=== PATIENT | female | born 1990 | race African-American/Black ===

== ENCOUNTER 2019-07-13 16:00 | Emergency (ER) | payer SELFPAY ==
[~2019-07-13] VITALS: Ht 157.5 cm; Wt 140.6 kg
[2019-07-13 16:33] VITALS: BP 139/72
[2019-07-13] MEDS ORDERED: ALBUTEROL SULFATE 2.5 MG/3 ML NEBU. NEB ONE (17:00)
[2019-07-13] MEDS ORDERED: ALBU2.5V8 INH (18:02)
--- NOTE | 2019-07-13 18:03 | PHYS DOC ---
Past Medical History Past Medical History: Asthma Past Surgical History: Alcohol Use: Occasionally Drug Use: None Adult General Chief Complaint Chief Complaint: COUGH HPI HPI Patient is a 28 year old AA female, who presents to the emergency department with complaints of a dry cough, chest tenderness with coughing, wheezing, nasal congestion, sore throat, and bilateral ear fullness since yesterday. Patient states she has a history of asthma and is out of her asthma medications. SHe currently rates her pain a 5 out of 10 on the pain scale, she denies any alleviating factors, states that coughing exacerbates her pain. Review of Systems Review of Systems Constitutional: Denies fever or chills [] Eyes: Denies change in visual acuity, redness, or eye pain [] HENT: Reports nasal congestion, runny nose, bilateral ear fullness, and sore throat since yesterday Respiratory: See history of present illness Cardiovascular: No additional information not addressed in HPI [] GI: Denies abdominal pain, nausea, vomiting, or diarrhea [] Musculoskeletal: Denies back pain Integument: Denies rash or skin lesions [] Neurologic: Denies headache Complete systems were reviewed and found to be within normal limits, except as documented in this note. Current Medications Current Medications Current Medications Medications (Trade) Dose Ordered Sig/Marli Start Time Stop Time Status Last Admin Dose Admin Albuterol Sulfate (Ventolin Neb Soln) 2.5 mg 1X ONCE 07/13/19 17:00 07/13/19 17:01 DC 07/13/19 17:20 2.5 MG Allergies Allergies Allergies Coded Allergies Type Severity Reaction Last Updated Verified Penicillins Allergy Intermediate Rash 07/13/19 Yes Physical Exam Physical Exam Constitutional: Well developed, well nourished, no acute distress, non-toxic appearance, obese. [] HENT: Normocephalic, atraumatic, bilateral external ears normal, oropharynx moist, cobblestone appearance of posterior pharynx without erythema, no oral exudates, nasal turbinates edematous and erythematous bilaterally Eyes: PERRLA, EOMI, conjunctiva normal, no discharge. [] Neck: Normal range of motion, no tenderness, supple, no stridor. [] Cardiovascular:Heart rate regular rhythm, no murmur [] Lungs & Thorax: Bilateral breath sounds clear to auscultation in upper lobes, diminished bilaterally and posterior lobes [] Skin: Warm, dry, no erythema, no rash. [] Back: No tenderness, no CVA tenderness. [] Extremities: No cyanosis, no clubbing, ROM intact, no edema. [] Neurologic: Alert and oriented X 3, no focal deficits noted. [] Psychologic: Affect normal, judgement normal, mood normal. [] Current Patient Data Vital Signs Vital Signs Date Time Temp Pulse Resp B/P (MAP) Pulse Ox O2 Delivery O2 Flow Rate FiO2 07/13/19 17:21 98 Room Air 07/13/19 16:33 98.9 78 12 139/72 (94) 98.9 EKG EKG [] Radiology/Procedures Radiology/Procedures Patient was given a breathing treatment in the emergency department, following the breathing treatment lungs were clear throughout all beyer with increased movement in the lower lobes bilaterally. Patient reported feeling better.[] Course & Med Decision Making Course & Med Decision Making Pertinent Labs and Imaging studies reviewed. (See chart for details) [] Dragon Disclaimer Dragon Disclaimer This electronic medical record was generated, in whole or in part, using a voice recognition dictation system. Departure Departure Impression: Primary Impression: URI (upper respiratory infection) Additional Impression: Allergic rhinitis Disposition: 01 HOME, SELF-CARE Condition: STABLE Referrals: NO PCP (PCP) Patient Instructions: Allergic Rhinitis, Upper Respiratory Infection, Adult, [id number]-[id number] Additional Instructions: Fill the prescription(s) and use as directed. Recommend that you take 10 mg of generic Zyrtec (cetirizine) or Claritin at bedtime and use over the counter Flonase (fluticasone) nasal spray 2 sprays each nostril once daily in the morning. You may take Tylenol or ibuprofen as needed for pain/fever. Increase clear fluids. Avoid triggers such as smoke, fragrance, dust, and pollen. You may take OTC cough suppressants as needed. Follow-up with your primary care doctor if symptoms persist, return to the ER if symptoms worsen. Scripts Albuterol Sulfate (Proair Hfa) 8.5 Gm Hfa.aer.ad 2 PUFF INH PRN Q6HRS PRN for SHORTNESS OF BREATH for 30 Days, #1 INHALER 1 Refill Prov: ANSELMO SEGUNDO TILE PICKER 07/13/19 Problem Qualifiers Primary Impression: URI (upper respiratory infection) URI type: unspecified URI Qualified Codes: J06.9 - Acute upper respiratory infection, unspecified Additional Impression: Allergic rhinitis Allergic rhinitis trigger: unspecified Allergic rhinitis seasonality: unspecified Qualified Codes: J30.9 - Allergic rhinitis, unspecified ANSELMO SEGUNDO TILE PICKER Jul 13, 2019 18:03
== END 2019-07-13 18:05 | disposition home or self-care (01) ==
LOC: ER 16:00
DX: J45.909 Unspecified asthma, uncomplicated (principal); J06.9 Acute upper respiratory infection, unspecified; Z98.890 Other specified postprocedural states; Z88.0 Allergy status to penicillin
CPT/HCPCS: 94640; 99283; J7613

== ENCOUNTER 2019-10-20 10:08 | Emergency (ER) | payer SELFPAY ==
[~2019-10-20] VITALS: Ht 157.5 cm; Wt 136.1 kg
[~2019-10-20 10:08] MED LIST: ALBU2.5V8 INH
[2019-10-20] MEDS ORDERED: IV NORMAL SALINE 1000ML BAG 1,000 ML IV SCH (11:24)
[2019-10-20] MEDS ORDERED: ONDANSETRON PF 4 MG/2 ML VIAL. IV ONE (11:30)
--- NOTE | 2019-10-20 11:35 | PHYS DOC ---
Past Medical History Past Medical History: Asthma, Other Additional Past Medical Histor: UTERINE FIBROIDS Past Surgical History: Alcohol Use: Rarely Drug Use: None Adult General Chief Complaint Chief Complaint: NAUSEA/VOMITING/DIARRHA HPI HPI Patient is a 29 year old female patient with history of asthma who presents with complaining of abdominal pain. Patient complaining of gradual onset of periumbilical abdominal pain the last 3 days as a constant pain associated with 4 episodes of vomiting since yesterday and feeling of constipation. Patient rated her pain 8/10 and complaining of urinary frequency and dysuria and one episode of fever of 102 couple days ago. Patient states the pain radiated to left flank and getting force with movement. Patient complaining of anorexia without having sick contact and history of the same problem. Patient states she had late menstruation for 23 days and had 1 day of vaginal bleeding on October 05 without using any contraception. Patient states she took oidb-tro-hfqayve Tylenol and ibuprofen without improvement of her pain. Review of Systems Review of Systems Constitutional: Denies fever or chills [] Eyes: Denies change in visual acuity, redness, or eye pain [] HENT: Denies nasal congestion or sore throat [] Respiratory: Denies cough or shortness of breath [] Cardiovascular: No additional information not addressed in HPI [] GI: Reports abdominal pain, nausea, vomiting, constipation, denies bloody stools or diarrhea [] : Denies hematuria, reports dysuria and urinary frequency[] Musculoskeletal: Denies back pain or joint pain [] Integument: Denies rash or skin lesions [] Neurologic: Denies headache, focal weakness or sensory changes [] Endocrine: Denies polyuria or polydipsia [] All other systems were reviewed and found to be within normal limits, except as documented in this note. Current Medications Current Medications Current Medications Medications (Trade) Dose Ordered Sig/Marli Start Time Stop Time Status Last Admin Dose Admin Ketorolac Tromethamine (Toradol 30mg Vial) 30 mg 1X ONCE 10/20/19 12:30 10/20/19 12:31 DC Ondansetron HCl (Zofran) 4 mg 1X ONCE 10/20/19 11:30 10/20/19 11:31 DC 10/20/19 12:03 4 MG Sodium Chloride 1,000 ml @ 1,000 mls/hr Q1H 10/20/19 11:24 10/20/19 12:23 DC 10/20/19 12:03 1,000 MLS/HR Allergies Allergies Allergies Coded Allergies Type Severity Reaction Last Updated Verified Penicillins Allergy Intermediate Rash 07/13/19 Yes Physical Exam Physical Exam Constitutional: Well developed, well nourished, mild distress, non-toxic appearance, morbidly obese. [] HENT: Normocephalic, atraumatic. Eyes: PERRLA, EOMI, conjunctiva normal, no discharge. [] Neck: Normal range of motion, no tenderness, supple, no stridor. [] Cardiovascular:Heart rate regular rhythm, no murmur [] Lungs & Thorax: Bilateral breath sounds clear to auscultation [] Abdomen: Bowel sounds normal, soft, right lower quadrant guarding , no tenderness, no masses, no pulsatile masses. [] Skin: Warm, dry, no erythema, no rash. [] Back: No tenderness, no CVA tenderness. [] Extremities: No tenderness, no cyanosis, no clubbing, ROM intact, no edema. [] Neurologic: Alert and oriented X 3, no focal deficits noted. [] Psychologic: Affect normal, judgement normal, mood normal. [] Current Patient Data Vital Signs Vital Signs Date Time Temp Pulse Resp B/P (MAP) Pulse Ox O2 Delivery O2 Flow Rate FiO2 10/20/19 11:23 98.6 72 16 124/65 (84) 99 Room Air 98.6 Lab Values Laboratory Tests Test 10/20/19 11:00 10/20/19 11:15 Urine Collection Type Unknown Urine Color Yellow Urine Clarity Clear Urine pH 7.5 Urine Specific [place] 1.015 Urine Protein Negative mg/dL (NEG-TRACE) Urine Glucose (UA) Negative mg/dL (NEG) Urine Ketones (Stick) Negative mg/dL (NEG) Urine Blood Negative (NEG) Urine Nitrite Negative (NEG) Urine Bilirubin Negative (NEG) Urine Urobilinogen Dipstick 1.0 mg/dL (0.2 mg/dL) Urine Leukocyte Esterase Negative (NEG) Urine RBC 0 /HPF (0-2) Urine WBC 0 /HPF (0-4) Urine Squamous Epithelial Cells Few /LPF Urine Bacteria 0 /HPF (0-FEW) Urine Test Negative (NEG) White Blood Count 5.7 x10^3/uL (4.0-11.0) Red Blood Count 4.65 x10^6/uL (3.50-5.40) Hemoglobin 12.6 g/dL (12.0-15.5) Hematocrit 38.5 % (36.0-47.0) Mean Corpuscular Volume 83 fL (79-100) Mean Corpuscular Hemoglobin 27 pg (25-35) Mean Corpuscular Hemoglobin Concent 33 g/dL (31-37) Red Cell Distribution Width 18.6 % (11.5-14.5) H Platelet Count 342 x10^3/uL (140-400) Neutrophils (%) (Auto) 45 % (31-73) Lymphocytes (%) (Auto) 44 % (24-48) Monocytes (%) (Auto) 9 % (0-9) Eosinophils (%) (Auto) 2 % (0-3) Basophils (%) (Auto) 1 % (0-3) Neutrophils # (Auto) 2.6 x10^3/uL (1.8-7.7) Lymphocytes # (Auto) 2.5 x10^3/uL (1.0-4.8) Monocytes # (Auto) 0.5 x10^3/uL (0.0-1.1) Eosinophils # (Auto) 0.1 x10^3/uL (0.0-0.7) Basophils # (Auto) 0.1 x10^3/uL (0.0-0.2) Sodium Level 140 mmol/L (136-145) Potassium Level 4.0 mmol/L (3.5-5.1) Chloride Level 105 mmol/L (98-107) Carbon Dioxide Level 24 mmol/L (21-32) Anion Gap 11 (6-14) Blood Urea Nitrogen 11 mg/dL (7-20) Creatinine 0.7 mg/dL (0.6-1.0) Estimated GFR (Cockcroft-Gault) 118.1 BUN/Creatinine Ratio 16 (6-20) Glucose Level 101 mg/dL (70-99) H Calcium Level 9.0 mg/dL (8.5-10.1) Total Bilirubin 0.3 mg/dL (0.2-1.0) Aspartate Amino Transferase (AST) 13 U/L (15-37) L Alanine Aminotransferase (ALT) 14 U/L (14-59) Alkaline Phosphatase 68 U/L (46-116) Total Protein 7.6 g/dL (6.4-8.2) Albumin 3.1 g/dL (3.4-5.0) L Albumin/Globulin Ratio 0.7 (1.0-1.7) L Lipase 29 U/L (73-393) L Laboratory Tests 10/20/19 11:15 Laboratory Tests 10/20/19 11:15 EKG EKG [] Radiology/Procedures Radiology/Procedures [][facility] [address] [place] [address] IMAGING REPORT Signed PATIENT: ALINE ERWIN ACCOUNT: [id number] : 1990 LOCATION: ER AGE: 29 SEX: F EXAM STATUS: REG ER ORD. PHYSICIAN: MARIE GELLER MD REASON: LEFT flank and abdominal pain PROCEDURE: CT ABDOMEN PELVIS WO CONTRAST EXAM: Abdomen and pelvis CT without intravenous contrast. HISTORY: Left flank and abdominal pain. TECHNIQUE: Computed tomographic images of the abdomen and pelvis were obtained without contrast. Multiplanar reformatting was performed. *One or more of the following individualized dose reduction techniques were utilized for this examination: 1. Automated exposure control. 2. Adjustment of the mA and/or kV according to patient size. 3. Use of iterative reconstruction technique. COMPARISON: None. FINDINGS: Evaluation of the lower thorax demonstrates no infiltrate or pleural effusion. There is mild air trapping. There is posterior dependent and basilar atelectasis. The heart is normal in size. There is a 2.0 cm partially peripherally calcified lesion adjacent to the gallbladder. This may be calcification of the wall of a phrygian cap or a stone within a phrygian cap. This may also be a peripheral calcified cystic lesion within the adjacent liver parenchyma. This is difficult to assess in the absence of contrast. The pancreas is unremarkable. There are small splenules. There is a splenic granuloma. The adrenal glands are unremarkable. There is no convincing hydronephrosis or nephrolithiasis. There is no appendicitis. There is no bowel obstruction. The uterus, ovaries and urinary bladder are unremarkable. The aorta is normal in caliber. There is no lymphadenopathy. There is no suspicious osseous lesion. IMPRESSION: 1. No convincing acute abdominal or pelvic finding. 2. 2.0 cm partially partially calcified lesion adjacent to the gallbladder. This may be a phrygian cap wall calcification, a phrygian cap stone or adjacent cystic lesion involving the liver. This can be better characterized with a sonogram or contrast-enhanced exam. Electronically signed by: Michelle Gregory MD (10/20/2019 12:43 PM) [place] [id number] DICTATED and SIGNED BY: MICHELLE GREGORY MD DATE: 10/20/19 6381 Course & Med Decision Making Course & Med Decision Making Pertinent Labs and Imaging studies reviewed. (See chart for details) Evaluation of patient in ER showed 29-year-old female patient with morbid obesity and complaining of lower abdominal pain for 3 days. Patient had unremarkable CBC, CMP, UA with normal liver function tests. Patient had questionable calcification in right upper quadrant. Patient did not have right upper quadrant tenderness or complaining of pain. Patient was advised to follow- up with her primary care physician regarding gallbladder evaluation. Patient felt better with treatment in ER. Plan discharge patient home with diagnosis of abdominal pain. Dragon Disclaimer Dragon Disclaimer This electronic medical record was generated, in whole or in part, using a voice recognition dictation system. Departure Departure Impression: Primary Impression: Lower abdominal pain Additional Impressions: Flank pain Nausea and vomiting Morbid obesity Disposition: 01 HOME, SELF-CARE (at 1306) Condition: IMPROVED Referrals: NO PCP (PCP) Patient Instructions: Abdominal Pain, Nausea and Vomiting Additional Instructions: Drink plenty of liquids Follow-up with your primary care physician in 3-5 days for more evaluation of gallbladder Return to ER if not getting better Scripts Ondansetron Hcl (ZOFRAN) 4 Mg Tablet 1 TAB PO PRN Q6-8HRS for nausea, #12 TAB Prov: MARIE GELLER MD 10/20/19 Famotidine (PEPCID) 20 Mg Tablet 20 MG PO BID, #30 TAB Prov: MARIE GELLER MD 10/20/19 Hydrocodone/Apap 5-325 (NORCO 5-325 TABLET) 1 Each Tablet 1 TAB PO PRN Q6HRS PRN for PAIN, #10 TAB 0 Refills Prov: MARIE GELLER MD 10/20/19 Problem Qualifiers Additional Impressions: Nausea and vomiting Vomiting type: unspecified Vomiting Intractability: non-intractable Qualified Codes: R11.2 - Nausea with vomiting, unspecified MARIE GELLER MD Oct 20, 2019 11:35
[2019-10-20 11:46] LABS: BASO # 0.1 x10^3/uL (0.0-0.2); BASO % 1 % (0-3); EOS # 0.1 x10^3/uL (0.0-0.7); EOS % 2 % (0-3); HEMATOCRIT 38.5 % (36.0-47.0); HEMOGLOBIN 12.6 g/dL (12.0-15.5); LYMPH # 2.5 x10^3/uL (1.0-4.8); LYMPH % 44 % (24-48); MEAN CORPUSCULAR HEMOGLOBIN 27 pg (25-35); MEAN CORPUSCULAR HGB CONC 33 g/dL (31-37); MEAN CORPUSCULAR VOLUME 83 fL (79-100); MONO # 0.5 x10^3/uL (0.0-1.1); MONO % 9 % (0-9); NEUT # 2.6 x10^3/uL (1.8-7.7); NEUT % 45 % (31-73); PLATELET COUNT 342 x10^3/uL (140-400); RED BLOOD COUNT 4.65 x10^6/uL (3.50-5.40); RED CELL DISTRIBUTION WIDTH 18.6 % (11.5-14.5); WHITE BLOOD COUNT 5.7 x10^3/uL (4.0-11.0)
[2019-10-20 11:52] LABS: BILIRUBIN,URINE NEGATIVE (NEG); CLARITY,URINE CLEAR; COLOR,URINE YELLOW; NITRITE,URINE NEGATIVE (NEG); PH,URINE 7.5; PROTEIN,URINE NEGATIVE (NEG-TRACE)
[2019-10-20 11:58] LABS: CREATININE 0.7 mg/dL (0.6-1.0); GFR 118.1
[2019-10-20 12:03] LABS: BACTERIA,URINE 0 /HPF (0-FEW); RBC,URINE 0 /HPF (0-2); SQUAMOUS EPITHELIAL CELL,UR FEW /LPF; WBC,URINE 0 /HPF (0-4)
[2019-10-20 12:03] LABS: ALBUMIN 3.1 g/dL (3.4-5.0); ALBUMIN/GLOBULIN RATIO 0.7 (1.0-1.7); TOTAL BILIRUBIN 0.3 mg/dL (0.2-1.0); TOTAL PROTEIN 7.6 g/dL (6.4-8.2)
[2019-10-20 12:08] LABS: U PREG PATIENT NEGATIVE (NEG)
[2019-10-20] MEDS ORDERED: KETOROLAC 30 MG/ML VIAL. IVP ONE (12:30)
--- NOTE | 2019-10-20 12:46 | RAD ---
EXAM: Abdomen and pelvis CT without intravenous contrast. HISTORY: Left flank and abdominal pain. TECHNIQUE: Computed tomographic images of the abdomen and pelvis were obtained without contrast. Multiplanar reformatting was performed. *One or more of the following individualized dose reduction techniques were utilized for this examination: 1. Automated exposure control. 2. Adjustment of the mA and/or kV according to patient size. 3. Use of iterative reconstruction technique. COMPARISON: None. FINDINGS: Evaluation of the lower thorax demonstrates no infiltrate or pleural effusion. There is mild air trapping. There is posterior dependent and basilar atelectasis. The heart is normal in size. There is a 2.0 cm partially peripherally calcified lesion adjacent to the gallbladder. This may be calcification of the wall of a phrygian cap or a stone within a phrygian cap. This may also be a peripheral calcified cystic lesion within the adjacent liver parenchyma. This is difficult to assess in the absence of contrast. The pancreas is unremarkable. There are small splenules. There is a splenic granuloma. The adrenal glands are unremarkable. There is no convincing hydronephrosis or nephrolithiasis. There is no appendicitis. There is no bowel obstruction. The uterus, ovaries and urinary bladder are unremarkable. The aorta is normal in caliber. There is no lymphadenopathy. There is no suspicious osseous lesion. IMPRESSION: 1. No convincing acute abdominal or pelvic finding. 2. 2.0 cm partially partially calcified lesion adjacent to the gallbladder. This may be a phrygian cap wall calcification, a phrygian cap stone or adjacent cystic lesion involving the liver. This can be better characterized with a sonogram or contrast-enhanced exam. Electronically signed by: Michelle Gregory MD (10/20/2019 12:43 PM) [place] [id number]
[2019-10-20] MEDS ORDERED: ONDA4TAB7 PO (13:10)
[2019-10-20] MEDS ORDERED: HYDR-3164 PO (13:10)
[2019-10-20] MEDS ORDERED: FAMO-63 PO (13:10)
[2019-10-20 13:32] VITALS: BP 135/80
== END 2019-10-20 13:35 | disposition home or self-care (01) ==
LOC: ER 10:08
DX: R10.31 Right lower quadrant pain (principal); R11.2 Nausea with vomiting, unspecified; E66.01 Morbid (severe) obesity due to excess calories; Z68.43 Body mass index [BMI] 50.0-59.9, adult; J45.909 Unspecified asthma, uncomplicated; Z98.890 Other specified postprocedural states; Z88.0 Allergy status to penicillin; Z79.899 Other long term (current) drug therapy
CPT/HCPCS: 36415; 74176; 80053; 81001; 81025; 83690; 85025; 96361; 96374; 99285; J2405; J7030

== ENCOUNTER 2019-12-04 20:07 | Emergency (ER) | payer SELFPAY ==
[~2019-12-04] VITALS: Ht 157.5 cm; Wt 145.4 kg
[~2019-12-04 20:07] MED LIST changes: +FAMO-63 PO; +HYDR-3164 PO; +ONDA4TAB7 PO
[2019-12-04 20:15] VITALS: BP 126/60
--- NOTE | 2019-12-04 21:26 | PHYS DOC ---
Past Medical History Past Medical History: Asthma, Other Additional Past Medical Histor: UTERINE FIBROIDS,MORBID OBESITY (ANSELMO SEGUNDO APRN) Past Surgical History: (ANSELMO SEGUNDO APRN) Alcohol Use: Rarely Drug Use: None (ANSELMO SEGUNDO APRN) Attending Signature I have participated in the care of this patient and I have reviewed and agree with all pertinent clinical information above including history, exam, and recommendations. (TRIXIE CUBA MD) Adult General Chief Complaint Chief Complaint: COUGH HPI HPI Patient is a 29 year old morbidly obese AA female who presents to the emergency department with complaints of a fever up to 102 today, body aches, fatigue, and a dry cough. Patient denies any shortness of breath or difficulty breathing. She states that she took medication for her fever at 5 pm. SHe rates her pain a 10/10 on the pain scale she denies any alleviating factors. All other ROS is neg unless otherwise noted in HPI. (ANSELMO SEGUNDO APRN) Allergies Allergies Allergies Coded Allergies Type Severity Reaction Last Updated Verified Penicillins Allergy Intermediate Rash 07/13/19 Yes (TRIXIE CUBA MD) Physical Exam Physical Exam Constitutional: Well developed, well nourished, no acute distress, ill anthony earance, morbidly obese HENT: Normocephalic, atraumatic, bilateral external ears normal, bilateral TMs normal, posterior pharynx normal oropharynx moist, nose congested with erythema and edema of the nasal turbinates bilaterally Eyes: PERRLA, conjunctiva injected bilaterally, no discharge. [] Neck: Normal range of motion, no stridor. [] Cardiovascular:Heart rate regular rhythm, no murmur [] Lungs & Thorax: Bilateral breath sounds clear to auscultation, Respirations even and unlabored, no retractions, no respiratory distress Skin: Warm, dry, no erythema, no rash. [] Back: No tenderness Extremities: No cyanosis, ROM intact Neurologic: Alert and oriented X 3, no focal deficits noted. [] Psychologic: Affect normal, judgement normal, mood normal. (ANSELMO SEGUNDO APRN) Current Patient Data Vital Signs Vital Signs Date Time Temp Pulse Resp B/P (MAP) Pulse Ox O2 Delivery O2 Flow Rate FiO2 1/30/20 20:15 97.9 65 18 126/60 (82) 100 Room Air 97.9 (TRIXIE CUBA MD) Lab Values Laboratory Tests Test 12/04/19 20:32 POC Urine HCG, Qualitative Hcg negative (Negative) (TRIXIE CUBA MD) EKG EKG [] (ANSELMO SEGUNDO APRN) Radiology/Procedures Radiology/Procedures [] (ANSELMO SEGUNDO APRN) Course & Med Decision Making Course & Med Decision Making Pertinent Labs and Imaging studies reviewed. (See chart for details) [] (ANSELMO SEGUNDO APRN) Dragon Disclaimer Dragon Disclaimer This electronic medical record was generated, in whole or in part, using a voice recognition dictation system. (ANSELMO SEGUNDO APRN) Departure Departure Impression: Primary Impression: Influenza-like illness Disposition: HOME, SELF-CARE Referrals: NO PCP (PCP) Patient Instructions: Influenza, Adult, [id number] Additional Instructions: Fill the prescription and take as directed. Alternate Tylenol and ibuprofen as needed for fever. Increase clear fluids and rest. Diet as tolerated. Recommend use of [id number] flu medications as needed for relief of your symptoms. Follow up with your primary care doctor if symptoms persist, return to the ER symptoms worsen. Scripts Oseltamivir Phosphate (TAMIFLU) 75 Mg Capsule 1 CAP PO BID for 5 Days, #10 CAP 0 Refills Prov: ANSELMO SEGUNDO APRN 12/04/19 ANSLEMO SEGUNDO APRN Dec 04, 2019 21:26 TRIXIE CUBA MD Dec 05, 2019 01:47
[2019-12-04] MEDS ORDERED: OSEL75CA PO (21:29)
== END 2019-12-04 21:41 | disposition home or self-care (01) ==
LOC: ER 20:07
DX: R50.9 Fever, unspecified (principal); R05 Cough; R53.83 Other fatigue; E66.01 Morbid (severe) obesity due to excess calories; J45.909 Unspecified asthma, uncomplicated; Z98.890 Other specified postprocedural states; Z68.43 Body mass index [BMI] 50.0-59.9, adult; Z88.0 Allergy status to penicillin
CPT/HCPCS: 81025; 99283

== ENCOUNTER 2020-08-27 17:43 | Emergency (ER) | payer OTHER ==
[~2020-08-27] VITALS: Ht 170.2 cm; Wt 136.4 kg
[~2020-08-27 17:43] MED LIST changes: +OSEL75CA PO
[2020-08-27 21:00] VITALS: BP 117/72
[2020-08-27] MEDS ORDERED: ORPH100T PO (23:00)
[2020-08-27] MEDS ORDERED: HYDR-3164 PO (23:00)
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
[2020-08-27] MEDS ORDERED: HYDROcodone/APAP 5/325MG 1 TAB TABLET PO ONE (23:45)
== END 2020-08-27 23:48 | disposition home or self-care (01) ==
LOC: ER 17:43
DX: S70.11XA Contusion of right thigh, initial encounter (principal); M25.551 Pain in right hip; M25.561 Pain in right knee; J45.909 Unspecified asthma, uncomplicated; F17.200 Nicotine dependence, unspecified, uncomplicated; E66.01 Morbid (severe) obesity due to excess calories; Z68.42 Body mass index [BMI] 45.0-49.9, adult; Z88.0 Allergy status to penicillin; Z98.890 Other specified postprocedural states; V98.8XXA Other specified transport accidents, initial encounter; Y93.89 Activity, other specified; Y92.413 State road as the place of occurrence of the external cause; Y99.8 Other external cause status
CPT/HCPCS: 73502; 73564; 81025; 99284

== ENCOUNTER 2021-07-15 18:42 | Emergency (ER) | payer OTHER ==
[~2021-07-15] VITALS: Ht 157.5 cm; Wt 354.0 kg
[~2021-07-15 18:42] MED LIST changes: +ORPH100T PO
--- NOTE | 2021-07-15 19:05 | PHYS DOC ---
Past Medical History Past Medical History: No Pertinent History Additional Past Medical Histor: UTERINE FIBROIDS,MORBID OBESITY Past Surgical History: No Surgical History Smoking Status: Never Smoker Alcohol Use: None Drug Use: None General Adult EDM: Chief Complaint: DIZZY/LIGHT HEADED HPI: HPI: 30-year-old female with no past medical history reports to the emergency department complaining of cough, fatigue, lightheadedness for the last several days. She states that her symptoms feel like "the room is spinning ", intermittent between lightheadedness and dizziness. She has not been vaccinated for COVID-19. She denies any shortness of breath, chest pain, nausea, vomiting, diarrhea, abdominal pain or any further symptoms. Review of Systems: Review of Systems: ROS is otherwise negative except what was mentioned in HPI Heart Score: C/O Chest Pain: No Allergies: Allergies: Allergies Coded Allergies Type Severity Reaction Last Updated Verified Penicillins Allergy Intermediate Rash 07/13/19 Yes Physical Exam: PE: Constitutional: No acute distress, non-toxic appearance. HENT: Atraumatic, bilateral external ears normal, nose normal. Eyes: PERRLA, EOMI, conjunctiva normal, no discharge. Neck: Normal range of motion, supple, no stridor. Cardiovascular: Heart rate regular rhythm. 2+ radial pulses Lungs & Thorax: No respiratory distress, symmetrical expansion. Bilateral breath sounds clear to auscultation Abdomen: Soft, no tenderness Skin: Warm, dry. Extremities: No tenderness, no cyanosis, ROM intact, no edema. Neurologic: Alert and oriented X 3, normal motor function, normal sensory function, no focal deficits noted. Non ataxic gait. GCS 15. Psychologic: Affect normal, judgment normal, mood normal. Current Patient Data: Labs: Laboratory Tests Test 07/15/21 19:21 07/15/21 19:25 07/15/21 19:37 07/15/21 19:39 Urine Collection Type Unknown Urine Color Yellow Urine Clarity Clear Urine pH 6.0 (<5.0-8.0) Urine Specific [place] 1.025 (1.000-1.030) Urine Protein Negative mg/dL (NEG-TRACE) Urine Glucose (UA) Negative mg/dL (NEG) Urine Ketones (Stick) Negative mg/dL (NEG) Urine Blood Negative (NEG) Urine Nitrite Negative (NEG) Urine Bilirubin Negative (NEG) Urine Urobilinogen Dipstick 0.2 mg/dL (0.2 mg/dL) Urine Leukocyte Esterase Negative (NEG) Urine RBC Occ /HPF (0-2) Urine WBC Occ /HPF (0-4) Urine Squamous Epithelial Cells Mod /LPF Urine Bacteria Moderate /HPF (0-FEW) Urine Mucus Marked /LPF Bedside Urine HCG, Qualitative Hcg negative (Negative) White Blood Count 3.9 x10^3/uL (4.0-11.0) Red Blood Count 4.26 x10^6/uL (3.50-5.40) Hemoglobin 12.4 g/dL (12.0-15.5) Hematocrit 37.0 % (36.0-47.0) Mean Corpuscular Volume 87 fL (79-100) Mean Corpuscular Hemoglobin 29 pg (25-35) Mean Corpuscular Hemoglobin Concent 34 g/dL (31-37) Red Cell Distribution Width 16.1 % (11.5-14.5) Platelet Count 312 x10^3/uL (140-400) Neutrophils (%) (Auto) 41 % (31-73) Lymphocytes (%) (Auto) 41 % (24-48) Monocytes (%) (Auto) 16 % (0-9) Eosinophils (%) (Auto) 0 % (0-3) Basophils (%) (Auto) 2 % (0-3) Neutrophils # (Auto) 1.6 x10^3/uL (1.8-7.7) Lymphocytes # (Auto) 1.6 x10^3/uL (1.0-4.8) Monocytes # (Auto) 0.6 x10^3/uL (0.0-1.1) Eosinophils # (Auto) 0.0 x10^3/uL (0.0-0.7) Basophils # (Auto) 0.1 x10^3/uL (0.0-0.2) Sodium Level 141 mmol/L (136-145) Potassium Level 3.2 mmol/L (3.5-5.1) Chloride Level 107 mmol/L (98-107) Carbon Dioxide Level 25 mmol/L (21-32) Anion Gap 9 (6-14) Blood Urea Nitrogen 9 mg/dL (7-20) Creatinine 1.0 mg/dL (0.6-1.0) Estimated GFR (Cockcroft-Gault) 77.7 Glucose Level 144 mg/dL (70-99) Calcium Level 8.5 mg/dL (8.5-10.1) SARS-CoV-2 Antigen (Rapid) Positive (NEGATIVE) Vital Signs: Vital Signs Date Time Temp Pulse Resp B/P (MAP) Pulse Ox O2 Delivery O2 Flow Rate FiO2 07/15/21 18:55 98.8 86 16 151/87 (108) 98 Room Air 98.8 EKG: EK: Normal sinus rhythm rate of 73, no ST-T wave changes, no ectopic beats, normal axis, normal [place], QRS, and QTc intervals. Impression: Normal EKG. interpreted by me, Guilherme Cary D.O. Radiology/Procedures: Radiology/Procedures: EXAMINATION: XR CHEST 1V CLINICAL HISTORY: Cough COMPARISON: None FINDINGS: Lines, Tubes, and Devices: None. Cardiomediastinal Silhouette: Within normal limits. Lungs and Pleura: Mild patchy right basilar airspace disease. No evidence of pleural effusion or pneumothorax. Bones and Soft Tissues: No acute osseous abnormality. IMPRESSION: Mild patchy right basilar airspace disease. Electronically signed by: Luca Adkins DO (07/15/2021 8:10 PM) Course & Med Decision Making: Course & Med Decision Making With typical viral symptoms suggestive of Covid, her rapid test was positive today. I discussed the results with her and advised her to self quarantine at home until she test negative and is asymptomatic. She has no supplemental oxygen requirement at this time, vital signs are as above and normal, advised her to return to the emergency department if she has any further consequences of her disease. Departure Departure Impression: Primary Impression: COVID-19 Disposition: 01 HOME / SELF CARE / HOMELESS Condition: STABLE Referrals: NO PCP (PCP) Patient Instructions: Upper Respiratory Infection, Adult, [id number] Additional Instructions: You were seen in the emergency department for a upper respiratory tract infection, from COVID-19. You should return to the ED if you develop worsening cough, shortness of breath, chest pain, or any other new or concerning symptoms. You can use an OTC sinus rinse to help with sinus congestion. Your cough may persist for a few weeks but your other symptoms should gradually improve. You should make sure to drink plenty of fluids at home. You may use Tylenol at home for fevers every 4-6 hours no more than 4000 mg/day. Please remember it is very important that you self isolate/quarantine at home, stay away from family and friends, and stay away from work until you are cleared by your physician or you test negative and are asymptomatic. GUILHERME CARY DO Jul 15, 2021 19:05
[2021-07-15] MEDS ORDERED: IV NORMAL SALINE 1000ML BAG 1,000 ML IV ONE (19:15)
[2021-07-15 19:29] LABS: BILIRUBIN,URINE NEGATIVE (NEG); CLARITY,URINE CLEAR; COLOR,URINE YELLOW; NITRITE,URINE NEGATIVE (NEG); PROTEIN,URINE NEGATIVE (NEG-TRACE); UROBILINOGEN,URINE 0.2 mg/dL (0.2 mg/dL)
[2021-07-15 19:40] LABS: BACTERIA,URINE MODERATE /HPF (0-FEW); RBC,URINE OCC /HPF (0-2); WBC,URINE OCC /HPF (0-4)
[2021-07-15 19:49] LABS: BASO # 0.1 x10^3/uL (0.0-0.2); BASO % 2 % (0-3); EOS % 0 % (0-3); HEMOGLOBIN 12.4 g/dL (12.0-15.5); LYMPH # 1.6 x10^3/uL (1.0-4.8); LYMPH % 41 % (24-48); MEAN CORPUSCULAR HEMOGLOBIN 29 pg (25-35); MEAN CORPUSCULAR HGB CONC 34 g/dL (31-37); MEAN CORPUSCULAR VOLUME 87 fL (79-100); MONO # 0.6 x10^3/uL (0.0-1.1); MONO % 16 % (0-9); NEUT # 1.6 x10^3/uL (1.8-7.7); NEUT % 41 % (31-73); PLATELET COUNT 312 x10^3/uL (140-400); RED BLOOD COUNT 4.26 x10^6/uL (3.50-5.40); RED CELL DISTRIBUTION WIDTH 16.1 % (11.5-14.5); WHITE BLOOD COUNT 3.9 x10^3/uL (4.0-11.0)
[2021-07-15 19:58] LABS: CALCIUM 8.5 mg/dL (8.5-10.1); GFR 77.7; POTASSIUM 3.2 mmol/L (3.5-5.1)
--- NOTE | 2021-07-15 20:13 | RAD ---
EXAMINATION: XR CHEST 1V CLINICAL HISTORY: Cough COMPARISON: None FINDINGS: Lines, Tubes, and Devices: None. Cardiomediastinal Silhouette: Within normal limits. Lungs and Pleura: Mild patchy right basilar airspace disease. No evidence of pleural effusion or pneu mothorax. Bones and Soft Tissues: No acute osseous abnormality. IMPRESSION: Mild patchy right basilar airspace disease. Electronically signed by: Luca Adkins DO (07/15/2021 8:10 PM) CAROL ANN
[2021-07-15 20:27] VITALS: BP 151/86
--- NOTE | 2021-07-16 02:17 | EKG ---
[facility] [address] [place] [address] Test Date: 2021-07-15 Test Time: 19:02:11 Pat Name: ALINE ERWIN Department: Room: Gender: F [employer] Computer: : 1990 Requested By: GUILHERME HILL Order Number: [id number] Reading MD: Measurements Intervals [place] Rate: 73 P: 137 MS: 150 QRS: 139 QRSD: 82 T: 164 QT: 374 QTc: 416 Interpretive Statements SINUS RHYTHM ABNORMAL RIGHT AXIS DEVIATION QRS(T) CONTOUR ABNORMALITY CONSISTENT WITH HIGH LATERAL INFARCT AGE UNDETERMINED CONSIDER INFERIOR INFARCT ABNORMAL ECG RI6.02 No previous ECG available for comparison
== END 2021-07-15 20:46 | disposition home or self-care (01) ==
LOC: ER 18:42
DX: U07.1 COVID-19 (principal); E66.01 Morbid (severe) obesity due to excess calories; Z68.45 Body mass index [BMI] 70 or greater, adult; Z88.0 Allergy status to penicillin
CPT/HCPCS: 36415; 71045; 80048; 81001; 81025; 85025; 87086; 87426; 93005; 96360; 99285; J7030

== ENCOUNTER 2022-04-04 17:13 | Emergency (ER) | payer OTHER ==
[~2022-04-04] VITALS: Ht 157.5 cm; Wt 133.6 kg
[2022-04-04] MEDS ORDERED: ALBUTEROL SULFATE 2.5 MG/3 ML NEBU. CONT NEB ONE (17:45)
[2022-04-04] MEDS ORDERED: predniSONE 10 MG TABLET PO ONE (17:45)
--- NOTE | 2022-04-04 17:58 | PHYS DOC ---
Past Medical History Past Medical History: No Pertinent History Additional Past Medical Histor: UTERINE FIBROIDS,MORBID OBESITY Past Surgical History: Smoking Status: Never Smoker Alcohol Use: None Drug Use: None General Adult EDM: Chief Complaint: MULTIPLE COMPLAINTS HPI: HPI: Patient is a 31 year old female who presents with 3 days of cough, chills, body aches, chest tightness, throat pain and vomiting with coughing, burning in her chest. She states that her boyfriend's daughter tested positive for COVID today. Patient has had 2 COVID vaccines but no booster. Patient last took ibuprofen this morning around 6:00. She did not is a smoker, has seasonal allergies, is asthmatic. She states she does not have a albuterol inhaler or nebulizer machine at home. She states she has not taken any allergy medication. Review of Systems: Review of Systems: Constitutional: Denies fever or +chills. [] Eyes: Denies change in visual acuity. [] HENT: Denies nasal congestion or +sore throat with cough.[] Respiratory: + cough or +shortness of breath. [] Cardiovascular: Denies chest pain or edema. +chest tightness[] GI: Denies abdominal pain, nausea, +vomiting with coughing, denies bloody stools or diarrhea. [] : Denies dysuria. [] Musculoskeletal: Denies back pain or joint pain. [] Integument: Denies rash. [] Neurologic: Denies headache, focal weakness or sensory changes. [] Endocrine: Denies polyuria or polydipsia. [] Lymphatic: Denies swollen glands. [] Psychiatric: Denies depression or anxiety. [] Heart Score: C/O Chest Pain: No Current Medications: Current Medications Medications (Trade) Dose Ordered Sig/Marli Start Time Stop Time Status Last Admin Dose Admin Albuterol Sulfate (Ventolin Neb Soln) 10 mg 1X ONCE 04/04/22 17:45 04/04/22 17:46 DC Prednisone (Prednisone) 50 mg 1X ONCE 04/04/22 17:45 04/04/22 17:48 DC Allergies: Allergies: Allergies Coded Allergies Type Severity Reaction Last Updated Verified Penicillins Allergy Intermediate Rash 07/13/19 Yes Physical Exam: PE: Constitutional: Well developed, well nourished, no acute distress, non-toxic appearance. [] HENT: Normocephalic, atraumatic, bilateral external ears normal, oropharynx moist, no oral exudates, nose normal. Throat reddened without exudates or swelling[] Eyes: PERRLA, EOMI, conjunctiva normal, no discharge. [] Neck: Normal range of motion, no tenderness, supple, no stridor. [] Cardiovascular:Heart rate regular rhythm, no murmur [] Lungs & Thorax: Bilateral breath sounds diminished with wheezing to auscultation [] Abdomen: Bowel sounds normal, soft, no tenderness, no masses, no pulsatile masses. [] Skin: Warm, dry, no erythema, no rash. [] Back: No tenderness, no CVA tenderness. [] Extremities: No tenderness, no cyanosis, no clubbing, ROM intact, no edema. [] Neurologic: Alert and oriented X 3, normal motor function, normal sensory function, no focal deficits noted. [] Psychologic: Affect normal, judgement normal, mood normal. [] Current Patient Data: Labs: Laboratory Tests Test 04/04/22 17:43 POC Urine HCG, Qualitative Hcg negative (Negative) EKG: EKG: [] Radiology/Procedures: Radiology/Procedures: [] Impression: [facility] [address] [facility] [place], [place] [id number] IMAGING REPORT Signed PATIENT: ALINE ERWIN ACCOUNT: [id number] : 1990 LOCATION: ER AGE: 31 SEX: F EXAM STATUS: REG ER ORD. PHYSICIAN: VERN WARREN APRN REASON: cough, fever PROCEDURE: PORTABLE CHEST 1V XR CHEST 1V INDICATION: cough, fever . COMPARISON STUDY: 07/15/2021. FINDINGS: Lungs: Normal lung volume. No pulmonary mass or consolidation. The tracheobronchial tree and hilar structures are normal. Pleura: No pleural effusion or pneumothorax. Heart and Mediastinum: The cardiomediastinal silhouette is normal. The great vessels of the thorax are normal. IMPRESSION: No consolidation. Electronically signed by: Anirudh Pinon MD (04/04/2022 7:39 PM) [facility] DICTATED and SIGNED BY: ANIRUDH PINON MD DATE: 04/04/221937 Course & Med Decision Making: Course & Med Decision Making pertinent Labs and Imaging studies reviewed. (See chart for details) COVID-19 CRITERIA: The patient was evaluated during the global COVID-19 pandemic, and that diagnosis was suspected/considered upon their initial presentation. Their evaluation, treatment and testing was consistent with current guidelines for patients who present with complaints or symptoms that may be related to COVID-19. See HPI. Alert and orient x4. Ambulatory steady gait. Skin pink warm and dry. Speaks in full clear sentences. Lungs have expiratory wheezing and otherwise are diminished and tight. Afebrile upon arrival to the ED. No rashes. Morbidly obese. Patient is given a continuous breathing treatment, prednisone, and Zyrtec in the ED. [] Dragon Disclaimer: Dragon Disclaimer: This electronic medical record was generated, in whole or in part, using a voice recognition dictation system. Departure Departure Impression: Primary Impression: Asthma exacerbation Qualified Codes: J45.21 - Mild intermittent asthma with (acute) exacerbation Disposition: 01 HOME / SELF CARE / HOMELESS Condition: STABLE Referrals: NO PCP (PCP) Patient Instructions: Asthma, Adult, Cough, Adult, Fever, Adult Additional Instructions: Take all medications as prescribed. Drink plenty of fluids to stay hydrated. I would stay away from anyone positive for COVID. Since you have been around somebody positive for COVID you should quarantine for the next 7 days. Take Tylenol or ibuprofen to help with pain and fever. If you begin having severe chest pain or severe respiratory distress return to the emergency room. Scripts Cetirizine Hcl (ZYRTEC) 10 Mg Tablet 1 TAB PO DAILY, #30 TAB Prov: VERN WARREN INVENTORY CONTROL SPECIALIST 04/04/22 Ibuprofen (IBUPROFEN) 600 Mg Tablet 600 MG PO PRN Q6HRS PRN for INFLAMMATION, #25 TAB Prov: VERN WARREN INVENTORY CONTROL SPECIALIST 04/04/22 Prednisone (PREDNISONE) 50 Mg Tablet 1 TAB PO DAILY, #5 TAB Prov: ALFREDITO WARRENA Derian INVENTORY CONTROL SPECIALIST 04/04/22 Albuterol Sulfate (PROAIR HFA INHALER) 8.5 Gm Hfa.aer.ad 2 PUFF IH PRN Q4-6HRS PRN for wheezing for 21 Days, #1 INHALER 0 Refills Prov: VERN WARREN APRN 04/04/22 VERN WARREN APRN April 04, 2022 17:58
[2022-04-04] MEDS ORDERED: CETIRIZINE HCL 10 MG TABLET. PO ONE (18:00)
[2022-04-04 18:07] LABS: BACTERIA,URINE 0 /HPF (0-FEW); RBC,URINE 0 /HPF (0-2); WBC,URINE 0 /HPF (0-4)
[2022-04-04 18:36] LABS: INFLUENZA A PATIENT NEGATIVE (NEGATIVE); INFLUENZA B PATIENT NEGATIVE (NEGATIVE)
[2022-04-04 19:32] VITALS: BP 139/73
--- NOTE | 2022-04-04 19:41 | RAD ---
XR CHEST 1V INDICATION: cough, fever . COMPARISON STUDY: 07/15/2021. FINDINGS: Lungs: Normal lung volume. No pulmonary mass or consolidation. The tracheobronchial tree and hilar st ructures are normal. Pleura: No pleural effusion or pneumothorax. Heart and Mediastinum: The cardiomediastinal silhouette is normal. The great vessels of the thorax ar e normal. IMPRESSION: No consolidation. Electronically signed by: Erasmo Foster MD (04/04/2022 7:39 PM) [facility] CHERRY HILLJohn
[2022-04-04] MEDS ORDERED: ALBU2.5V8 IH (19:46)
[2022-04-04] MEDS ORDERED: PRED50TA PO (19:46)
[2022-04-04] MEDS ORDERED: CETI10TA74 PO (19:46)
[2022-04-04] MEDS ORDERED: IBUP-1007 PO (19:46)
== END 2022-04-04 20:06 | disposition home or self-care (01) ==
LOC: ER 17:13
DX: J45.21 Mild intermittent asthma with (acute) exacerbation (principal); E66.01 Morbid (severe) obesity due to excess calories; Z20.822 Contact with and (suspected) exposure to COVID-19; Z68.43 Body mass index [BMI] 50.0-59.9, adult; Z98.890 Other specified postprocedural states; Z88.0 Allergy status to penicillin
CPT/HCPCS: 71045; 81001; 81025; 87428; 94644; 99285; J7512; J7613